=== PATIENT | female | born 1990 | race African-American/Black ===

== ENCOUNTER 2018-01-08 10:45 | Emergency (ER) | payer OTHER ==
[~2018-01-08] VITALS: Ht 170.2 cm; Wt 114.3 kg
== END 2018-01-08 11:31 | disposition home or self-care (01) ==
LOC: FSED 10:45
DX: M54.5 Low back pain (principal); S39.012A Strain of muscle, fascia and tendon of lower back, initial encounter; M62.830 Muscle spasm of back
CPT/HCPCS: 99283